=== PATIENT | male | born 1995 | race Caucasian/White ===

== ENCOUNTER 2017-04-10 18:43 | Emergency (ER) | payer OTHER ==
[~2017-04-10] VITALS: Ht 175.2 cm; Wt 70.3 kg
[2017-04-10 18:54] VITALS: BP 115/66
[2017-04-10] MEDS ORDERED: PEPCID20 MG PO (21:19)
[2017-04-10] MEDS ORDERED: MEDROL DOSEPAK4 MG PO (21:19)
[2017-04-10] MEDS ORDERED: EPIPEN 2-P0.3 MG/0.3 IJ (21:19)
== END 2017-04-10 22:26 | disposition home or self-care (01) ==
LOC: ED 18:43
DX: T78.40XA Allergy, unspecified, initial encounter (principal); Z88.2 Allergy status to sulfonamides; X58.XXXA Exposure to other specified factors, initial encounter

== ENCOUNTER → 2020-05-20 | Outpatient (CLI) | payer OTHER ==
[~2020-05-20] MED LIST: EPIPEN 2-P0.3 MG/0.3 IJ; MEDROL DOSEPAK4 MG PO; PEPCID20 MG PO
== END | disposition home or self-care (01) ==
LOC: LAB 10:47
PROVIDERS: ATTEND Internal Medicine
DX: Z01.83 Encounter for blood typing (principal)